=== PATIENT | male | born 1975 | race Caucasian/White ===

== ENCOUNTER → 2021-10-13 | Outpatient (CLI) | payer OTHER ==
[~2021-10-13] MED LIST: ENOXAPARIN40 MG/0.4 SC; HYDROCODON-ACE1 EAC6 PO; IBUPROFEN IB200 MG PO; LOVENOX SY40 MG/0.4 SQ; LOVENOX40 MG/0.4 SQ; ROXICODONE5 MG PO
[2021-10-13 11:47] LABS: HEMOGLOBIN 13.4 gm/dl (14.0-17.5); RED BLOOD COUNT 4.23 M/UL (4.20-5.50); WHITE BLOOD COUNT 8.9 K/UL (4.5-11.0)
[2021-10-13 12:10] LABS: BUN/CREATININE RATIO 18 (0-10)
== END ==
LOC: OPSV2 10:00
PROVIDERS: Orthopaedic Surgery
DX: Z01.812 Encounter for preprocedural laboratory examination (principal); S52.502A Unspecified fracture of the lower end of left radius, initial encounter for closed fracture; X58.XXXA Exposure to other specified factors, initial encounter
CPT/HCPCS: 80048; 85025

== ENCOUNTER → 2021-10-18 | Day surgery (SDC) | payer OTHER | END | disposition home or self-care (01) | LOC: OR 07:01 | DX: S52.502A Unspecified fracture of the lower end of left radius, initial encounter for closed fracture (principal); S52.202A Unspecified fracture of shaft of left ulna, initial encounter for closed fracture; W12.XXXA Fall on and from scaffolding, initial encounter; I10 Essential (primary) hypertension; F32.A Depression, unspecified; F17.210 Nicotine dependence, cigarettes, uncomplicated; Z88.0 Allergy status to penicillin | CPT/HCPCS: 73110; 76000; C1713; J1100; J1170; J1885; J2001; J2250; J2405; J2704; J2795; J3010 ==